=== PATIENT | male | born 1975 | race Caucasian/White ===

== ENCOUNTER 2017-04-30 14:05 | Emergency (ER) | payer MEDICAID ==
[2017-04-30 14:21] VITALS: RESP 16
--- NOTE | 2017-04-30 14:21 | CPEKG ---
Heart Rate: 94 RR Interval: 638 P-R Interval: 160 QRSD Interval: 116 QT Interval: 360 QTC Interval: 451 P [place]: 37 QRS [place]: 109 T Wave [place]: 18 EKG Severity - ABNORMAL ECG - EKG Impression: SINUS RHYTHM EKG Impression: PROBABLE LEFT ATRIAL ABNORMALITY EKG Impression: NONSPECIFIC INTRAVENTRICULAR CONDUCTION DELAY Electronically Signed By: Jana Campos 30-Apr-2017 15:21:40
--- NOTE | 2017-04-30 15:00 | EDPHY ---
H & P Stated Complaint: NEAR SYNCOPE X3 YESTERDAY, SIMILAR PREVIOUS NC HPI/ROS: CHIEF COMPLAINT: Feeling faint HISTORY OF PRESENT ILLNESS: The patient is a 42 y/o male with a history of an NC, complaining of feeling faint since yesterday morning. He states that he has had two NC's previously which were reportedly diagnosed at [facility] with an EKG. He stood up from bed yesterday and immediately felt light headed, like he was going to faint. He's had a total of three similar episodes, all with change in posture, each lasting around 30-60 seconds. He believes that these symptoms are similar to the ones he had with his prior 2 NC's. He did smoke marijuana yesterday for the first time in several months. In addition to feeling faint, he has been coughing more than usual. Denies chest pain, shortness of breath, vomiting, diarrhea, blood in his stool, recent illness or other pertinent symptoms. He denies risk factors for VTE. REVIEW OF SYSTEMS: A ten point review of systems was performed and is negative with the exception of the items mentioned in the HPI. Past medical history: NC X2 per patient Schizoaffective disorder TBI as a child Past surgical history: Denies Family history: Denies Social history: Lives in [place] Single Uses tobacco and marijuana General Appearance: Alert. Vital signs reviewed. Blood pressure 121/73, heart rate 103 at triage. Eyes: Pupils equal and round, no conjunctival injection, no discharge. Anicteric. ENT, Mouth: Mucous membranes are moist, no oropharyngeal erythema or edema. Neck: No lymphadenopathy, supple. Respiratory: Lungs are clear to auscultation; no wheezes, rales, or rhonchi. Cardiovascular: Regular rate and rhythm; no murmur, rub, or gallop. Not tachycardic at the time of my evaluation. Gastrointestinal: Abdomen is soft and nontender, no masses or organomegaly, bowel sounds normal. Skin: Warm and dry, no rashes on exposed skin, normal color. Back: Nontender to palpation over the thoracolumbar spine. No CVAT. Extremities: No lower extremity edema, no calf tenderness or swelling. Neurological: Alert and oriented. Moving all four extremities easily and equally. Psychiatric: Normal affect. - Personal History Current Tetanus Diphtheria and Acellular Pertussis (TDAP): Unsure - Medical/Surgical History Other PMH: NC X2, REFLUX, SCHIZOAFFECTIVE, TBI A CHILD - Social History Smoking Status: Current every day smoker Constitutional: Initial Vital Signs Temperature (C) 36.5 C 04/30/17 14:09 Heart Rate 103 H 04/30/17 14:09 Respiratory Rate 16 04/30/17 14:09 Blood Pressure 121/73 H 04/30/17 14:09 O2 Sat (%) 95 04/30/17 14:09 O2 Delivery Mode Room Air Allergies/Adverse Reactions: ibuprofen Allergy (Verified 04/30/17 14:09) [place] Salicylat *RETIRED-02/12/12 [[place] Salicylate] Allergy (Verified 05/18 10:47) Home Medications: Medication Instructions Recorded Cogentin 04/30/17 INVEGA 04/30/17 Ranitidine HCl 04/30/17 Wellbutrin Sr 04/30/17 Zyprexa 04/30/17 Medical Decision Making - Diagnostics Imaging: I viewed and interpreted images myself ED Course/Re-evaluation: The patient is a 42 y/o male with a reported history of coronary artery disease , complaining of feeling faint intermittently since yesterday morning. He is not currently having chest pain. His physical exam is normal. EKG and blood work ordered. 1418: The 12 lead EKG was interpreted by myself as sinus rhythm with a rate of 94. See hard copy and/or "tracemaster" electronic copy for interpretation. 1520: Consulted with [facility], they report the patient had an EKG done in March, 1 month ago, which revealed abnormal Q wave in lead 3, unchanged compared to today's (a copy was faxed to ED). He was referred to Cardiology at that time but apparently has not yet been seen by Cardiology. 1545: Blood work is negative including a negative troponin. He is not experiencing chest pain. Orthostatic vital signs are within normal limits. I feel that it is safe for him to return home. I do not think that he is describing symptoms that are consistent with an acute coronary syndrome. Although this sounds like postural hypotension, we were unable to elicit any hypotension in the emergency department. There is no evidence of dehydration or blood loss. 1550: Reassessed patient and discussed EKG and blood work. He already has an appointment with his PCP and a crushed stone grader this week. Return precautions provided; patient is comfortable with this plan. Differential Diagnosis: Syncope including but not limited to vasovagal syncope, arrhythmia, dehydration , and blood loss. - Data Points Laboratory Results: Laboratory Results 04/30/17 14:21 04/30/17 14:21 Departure - Departure Disposition: Home, Routine, Self-Care Clinical Impression: Pre-syncope Condition: Good Instructions: Near Syncope (ED) Additional Instructions: Make sure to get up and down slowly. Follow-up with your primary doctor tomorrow as scheduled and with cardiology on as scheduled. Return to the Emergency Department for fever, chest pain, shortness of breath, changes in your vision, severe headache, increasing pain or other worsening of condition. Referrals: Bailee Davila MD [Primary Care Provider] - As per Instructions Report Scribed for: Jana Campos Report Scribed by: Kary Deluca Date of Report: 04/30/17 Time of Report: 15:20 Physician Review and Approval Statement: 04/30/17 15:00 Portions of this note were transcribed by the forensic medical examiner. I, Dr. Jana Campos, personally performed the history, physical exam, and medical decision- making; and confirmed the accuracy of the information in the transcribed note.
[2017-04-30 15:17] LABS: % IMMATURE GRANULYOCYTES 0.7 % (0.0-1.1); ABSOLUTE IMMATURE GRANULOCYTES 0.05 10^3/uL (0.00-0.10); ADD DIFF? NO; ADD MORPH? NO; ADD SCAN? NO; ATYPICAL LYMPHOCYTE FLAG 0 (0-99); FRAGMENT RBC FLAG 0 (0-99); HEMATOCRIT 44.1 % (40.0-51.0); HEMOGLOBIN 15.6 g/dL (13.7-17.5); LEFT SHIFT FLG 0 (0-99); LIPEMIA HEMOLYSIS FLAG 90 (0-99); MEAN CELL HEMOGLOBIN 29.5 pg (27.9-34.1); MEAN CELL HEMOGLOBIN CONCENTR. 35.4 g/dL (32.4-36.7); MEAN CELL VOLUME 83.5 fL (81.5-99.8); MEAN PLATELET VOLUME 12.1 fL (8.7-11.7); PLATELET CLUMPS FLAG 10 (0-99); PLATELET COUNT 194 10^3/uL (150-400); RED BLOOD CELL COUNT 5.28 10^6/uL (4.40-6.38); RED CELL DISTRIBUTION WIDTH 13.1 % (11.5-15.2)
[2017-04-30 15:23] LABS: ANION GAP 12 mEq/L (8-16); CALCIUM 9.4 mg/dL (8.5-10.4); CARBON DIOXIDE 26 mEq/l (22-31); CHLORIDE 103 mEq/L (97-110); CREATININE 0.9 mg/dL (0.7-1.3); GLOMERULAR FILTRATION RATE > 60; GLUCOSE 115 mg/dL (70-100); POTASSIUM 3.9 mEq/L (3.5-5.2); SODIUM 141 mEq/L (134-144)
[2017-04-30 15:35] LABS: TROPONIN I < 0.012 ng/mL (0.000-0.034)
[2017-04-30 16:13] VITALS: BP 113/77; PULSE 81; TEMP 98.2; O2SAT 98
== END 2017-04-30 16:12 | disposition home or self-care (01) ==
DX: R55 Syncope and collapse (principal); I25.2 Old myocardial infarction; F17.200 Nicotine dependence, unspecified, uncomplicated; I25.10 Atherosclerotic heart disease of native coronary artery without angina pectoris